=== PATIENT | female | born 1940 | race American Indian/Alaskan Native ===

== ENCOUNTER 2016-10-26 13:10 | Emergency (ER) | payer SELFPAY ==
--- NOTE | 2016-10-26 13:58 | Emergency Department Report ---
Chief Complaint: Medical Clearance Stated Complaint: MEDICATION REFILL Time Seen by Provider: 10/26/16 13:41 - HPI History of Present Illness: 76-year-old female brought in by personal senior care for a refill of her risperdal 10 mg. [employer] Officer states that she was brought into the personal senior care yesterday and has a history of hypertension, dementia, Alzheimer's. Patient was up all night indicates at times. [employer] Delivery [employer] Officer is concerned about a UTI as well. - ROS Review of Systems: Per HPI - Exam Vital Signs: Vital Signs 10/26/16 13:18 Temperature 98.6 F Pulse Rate 60 Respiratory 17 Rate Blood Pressure 165/94 O2 Sat by Pulse 100 Oximetry Physical Exam: General: 76-year-old female in no acute distress. CV: Regular rate and rhythm. Lungs: Clear to auscultation bilaterally. Abdomen: No tenderness to palpation. MSE screening note: Focused history and physical exam performed. Due to findings the following was ordered: ED Disposition for MSE Condition: Stable
[2016-10-26 14:27] LABS: Basophils % (Auto) 0.4 % (0.0-1.8); Eosinophils % (Auto) 0.3 % (0.0-4.3); Hematocrit 35.9 % (30.3-42.9); Hemoglobin 11.7 gm/dl (10.1-14.3); Mean Corpuscular HGB Conc 33 % (30-34); Mean Corpuscular Hemoglobin 32 pg (28-32); Mean Corpuscular Volume 98 fl (79-97); Platelet Count 151 K/mm3 (140-440); Red Blood Count 3.67 M/mm3 (3.65-5.03); Red Cell Distribution Width 13.1 % (13.2-15.2); White Blood Count 4.3 K/mm3 (4.5-11.0)
[2016-10-26 14:40] LABS: Anion Gap 16 mmol/L; Blood Urea Nitrogen 20 mg/dL (7-17); Calcium 9.2 mg/dL (8.4-10.2); Carbon Dioxide 29 mmol/L (22-30); Chloride 99.1 mmol/L (98-107); Glucose 145 mg/dL (65-100); Potassium 4.5 mmol/L (3.6-5.0); Sodium 140 mmol/L (137-145)
[2016-10-26] MEDS ORDERED: ATIVAN IM ONE (22:55)
[2016-10-26] MEDS ORDERED: ATIVAN ONE (22:59)
[2016-10-26] MEDS ORDERED: HALDOL IM ONE (23:53)
--- NOTE | 2016-10-26 23:58 | Emergency Department Report ---
ED General Adult HPI - General Chief complaint: Medical Clearance Stated complaint: MEDICATION REFILL Time Seen by Provider: 10/26/16 13:41 Source: family (caregiver), RN notes reviewed, old records reviewed Mode of arrival: Ambulatory Limitations: Other (patient demented, is a poor historian) - History of Present Illness Initial comments: This is a 76-year-old female, previously unknown to me. She recently moved here from [place]. She is staying in a personal custodial. She is brought to the ER by EMS along with the dentist/owner of the personal custodial, Mr. Cash Winston; [phone]. Patient has a past medical history of dementia, and is apparently chronically maintained on Risperdal, 5 mg twice daily. Also has a past medical history of dementia, hypertension, depression, GERD, history of breast cancer in remission in 2010. The caregiver at the personal custodial reports that the patient was dropped off with most of her medications, but not her Risperdal. She's been the personal custodial for the past day or so. The patient has been walking around , slightly agitated, not sleeping, and the caregiver is concerned about sundowning syndrome. Symptoms are constant. They have no exacerbating or relieving factors. To me, the patient denies headache, neck pain, chest pain, abdominal pain, shortness of breath, nausea, vomiting and diarrhea. She is not homicidal. She is not suicidal. No access to guns or firearms. Mr. Winston states he has a follow-up appointment tomorrow at 2:00 in the afternoon. -: Gradual Severity scale (0 -10): 0 Consistency: constant Improves with: none Worsens with: none Associated Symptoms: other (as per history of present illness) - Related Data Previous Rx's Medication Instructions Recorded Last Taken Type risperiDONE [RisperDAL] 5 mg PO BID #14 tab 10/26/16 Unknown Rx Allergies Allergy/AdvReac Type Severity Reaction Status Date / Time codeine Allergy Unknown Verified 10/26/16 13:35 Penicillins Allergy Unknown Verified 10/26/16 13:35 Sulfa (Sulfonamide Allergy Unknown Verified 10/26/16 13:35 Antibiotics) ED Review of Systems ROS: Stated complaint: MEDICATION REFILL Other details as noted in HPI Constitutional: see HPI Eyes: as per HPI ENT: as per HPI Respiratory: see HPI Cardiovascular: as per HPI Endocrine: see HPI Gastrointestinal: as per HPI Genitourinary: as per HPI Musculoskeletal: as per HPI Skin: as per HPI Neurological: as per HPI Psychiatric: as per HPI Hematological/Lymphatic: as per HPI ED Past Medical Hx - Past Medical History Hx GERD: Yes Hx of Cancer: Yes (BREAST) Hx Psychiatric Treatment: Yes (DEPRESSION) Hx Dementia: Yes Additional medical history: ALZHEIMERS. GASTROINTESTIONAL TUMOR - Medications Home Medications: Home Medications Medication Instructions Recorded Confirmed Last Taken Type risperiDONE [RisperDAL] 5 mg PO BID #14 tab 10/26/16 Unknown Rx ED Physical Exam - General Limitations: Other (demented, she is a poor historian) General appearance: alert, in no apparent distress - Head Head exam: Present: atraumatic, normocephalic - Eye Eye exam: Present: normal appearance, EOMI - ENT ENT exam: Present: normal exam, mucous membranes moist - Neck Neck exam: Present: normal inspection, full ROM. Absent: tenderness, meningismus - Respiratory Respiratory exam: Present: normal lung sounds bilaterally. Absent: respiratory distress, wheezes, rales, rhonchi, stridor, chest wall tenderness - Cardiovascular Cardiovascular Exam: Present: regular rate, normal rhythm, normal heart sounds. Absent: bradycardia, tachycardia, irregular rhythm, systolic murmur, diastolic murmur, rubs, gallop - GI/Abdominal GI/Abdominal exam: Present: soft, normal bowel sounds. Absent: distended, tenderness, guarding, rebound, rigid, pulsatile mass - Extremities Exam Extremities exam: Present: normal inspection, full ROM, normal capillary refill. Absent: tenderness, pedal edema, joint swelling, calf tenderness - Back Exam Back exam: Present: normal inspection, full ROM. Absent: tenderness, CVA tenderness (R), CVA tenderness (L), muscle spasm, paraspinal tenderness, vertebral tenderness - Neurological Exam Neurological exam: Present: alert, other (Extraocular movements intact. Tongue midline. No facial droop. Facial sensation intact to light touch in the V1, V2 , V3 distribution bilaterally. 5 and 5 strength in 4 extremities.. Sensation is intact to light touch in 4 extremities.). Absent: motor sensory deficit - Psychiatric Psychiatric exam: Absent: homicidal ideation, suicidal ideation - Skin Skin exam: Present: warm, dry, intact, normal color. Absent: rash ED Course Vital Signs 10/26/16 10/26/16 10/26/16 13:18 23:25 23:32 Temperature 98.6 F Pulse Rate 60 64 Respiratory 17 18 18 Rate Blood Pressure 165/94 Blood Pressure 153/75 [Left] O2 Sat by Pulse 100 99 Oximetry 10/27/16 01:50 Temperature Pulse Rate 62 Respiratory 18 Rate Blood Pressure Blood Pressure 148/72 [Left] O2 Sat by Pulse 99 Oximetry - Reevaluation(s) Reevaluation #1: 10/26/16 23:57 Differential diagnosis: Chronic dementia, electrolyte imbalance, urinary tract infection Assessment and plan: Elderly female with advanced dementia who has just relocated to a personal custodial, and has not taken her Risperdal. She is not homicidal. She is not suicidal. She is pleasantly demented. Has a nonfocal neurologic exam. May be sundowning. May be multifactorial. Laboratory studies reviewed and are unremarkable. Urinalysis is pending. I instructed Mr. Winston that I would do a one-time refill Risperdal, 5 mg twice daily for a week. He should follow-up with his scheduled physician appointment tomorrow, and he is instructed to seek out geriatric psychiatry for further outpatient evaluation. Reevaluation #2: 10/27/16 01:15 Urinalysis not consistent with urinary tract infection. Patient resting comfortably. She will be discharged. ED Medical Decision Making - Lab Data Result diagrams: 10/26/16 14:13 10/26/16 14:13 Vital Signs 10/26/16 10/26/16 13:18 23:32 Temperature 98.6 F Pulse Rate 60 64 Respiratory 17 18 Rate Blood Pressure 165/94 Blood Pressure 153/75 [Left] O2 Sat by Pulse 100 99 Oximetry Vital Signs 10/26/16 10/26/16 13:18 23:32 Temperature 98.6 F Pulse Rate 60 64 Respiratory 17 18 Rate Blood Pressure 165/94 Blood Pressure 153/75 [Left] O2 Sat by Pulse 100 99 Oximetry Critical care attestation.: If time is entered above; I have spent that time in minutes in the direct care of this critically ill patient, excluding procedure time. ED Disposition Clinical Impression: General medical exam Disposition: DISCHARGED TO HOME OR SELFCARE Is pt being admited?: No Does the pt Need Aspirin: No Condition: Stable Instructions: Dementia (ED) Additional Instructions: Continue current outpatient medications. Follow up with her primary care doctor or geriatric psychiatrist within the next week. Return to the ER right away with chest pain, shortness of breath, lethargy, irritability, projectile vomiting, change in mental status. Cultures were sent today, was also be available in the next 3-5 days. Have a primary care doctor contact medical records department to obtain culture results. Prescriptions: risperiDONE [RisperDAL] 5 mg PO BID #14 tab Referrals: PRIMARY CAREMD [Primary Care Provider] - 3-5 Days ROSANNA SHERIFF MD [Staff Physician] - 3-5 Days
[2016-10-27 00:40] LABS: Bilirubin,Urine NEG (Negative); Blood,Urine NEG (Negative); Granular Casts,Urine 2 /LPF; Ketones,Urine NEG (Negative); Leukocyte Esterase,Urine TR (Negative); Mucus,Urine FEW /HPF; Nitrite,Urine NEG (Negative); Protein,Urine <15 mg/dL mg/dL (Negative)
[2016-10-27 01:50] VITALS: BP 148/72
== END 2016-10-27 01:50 | disposition home or self-care (01) ==
LOC: ED 13:10
DX: Z00.8 Encounter for other general examination (principal); K21.9 Gastro-esophageal reflux disease without esophagitis; G30.9 Alzheimer's disease, unspecified; F02.81 Dementia in other diseases classified elsewhere, unspecified severity, with behavioral disturbance; Z85.3 Personal history of malignant neoplasm of breast
CPT/HCPCS: 36415; 80048; 81001; 85025; 87086; 96372; 99283; J1630; J2060